=== PATIENT | female | born 1990 | race American Indian/Alaskan Native ===

== ENCOUNTER 2017-08-30 12:18 | Outpatient (CLI) | payer OTHER ==
[2017-08-30 13:12] LABS: Bilirubin,Urine NEG (Negative); Blood,Urine NEG (Negative); Color,Urine Yellow (Yellow); Mucus,Urine FEW /HPF; Nitrite,Urine NEG (Negative); Protein,Urine <15 mg/dL mg/dL (Negative); Urobilinogen,Urine < 2.0 mg/dL (<2.0); WBC,Urine < 1.0 /HPF (0.0-6.0)
[2017-08-30 13:30] VITALS: BP 103/52
== END 2017-08-30 13:45 | disposition home or self-care (01) ==
LOC: TRG 12:18
PROVIDERS: ATTEND Obstetrics & Gynecology
DX: Z34.92 Encounter for supervision of normal pregnancy, unspecified, second trimester (principal); Z3A.26 26 weeks gestation of pregnancy
CPT/HCPCS: 59025; 81001

== ENCOUNTER 2017-10-16 18:30 | Outpatient (CLI) | payer OTHER ==
[2017-10-16] MEDS ORDERED: LACTATED RINGERS 1,000 ML IV ONE (19:37)
[2017-10-16 19:43] VITALS: BP 137/73
== END 2017-10-16 20:15 | disposition home or self-care (01) ==
LOC: TRG 18:30
PROVIDERS: ATTEND Obstetrics & Gynecology
DX: O47.03 False labor before 37 completed weeks of gestation, third trimester (principal); Z3A.33 33 weeks gestation of pregnancy
CPT/HCPCS: 59025

== ENCOUNTER 2017-10-30 01:15 | Inpatient (IN) | payer OTHER ==
[2017-10-30] MEDS ORDERED: LACTATED RINGERS 500 ML IV ONE (01:48)
[2017-10-30] MEDS ORDERED: NORMOSOL-R PH 7.4 1,000 ML IV ONE ×3 (02:03→18:21)
[2017-10-30 03:28] LABS: Hemoglobin 9.9 gm/dl (10.1-14.3); Mean Corpuscular HGB Conc 33 % (30-34); Mean Corpuscular Hemoglobin 28 pg (28-32); Mean Corpuscular Volume 86 fl (79-97); Platelet Count 224 K/mm3 (140-440); Red Blood Count 3.48 M/mm3 (3.65-5.03); Red Cell Distribution Width 14.7 % (13.2-15.2)
[2017-10-30 03:39] LABS: Bilirubin,Urine NEG (Negative); Blood,Urine NEG (Negative); Color,Urine Yellow (Yellow); Protein,Urine <15 mg/dL mg/dL (Negative); Urobilinogen,Urine < 2.0 mg/dL (<2.0)
[2017-10-30 03:44] LABS: Alanine Aminotransferase 28 units/L (7-56)
[2017-10-30 04:35] LABS: Uric Acid 5.5 mg/dL (3.5-7.6)
[2017-10-30] MEDS ORDERED: AMBIEN PO PRN (06:16)
[2017-10-30] MEDS ORDERED: MYLICON PO PRN (06:16)
[2017-10-30] MEDS ORDERED: TYLENOL PO PRN (06:16)
[2017-10-30] MEDS ORDERED: MILK OF MAGNESIA PO PRN (06:16)
[2017-10-30] MEDS ORDERED: APRESOLINE IV PRN (06:16)
[2017-10-30] MEDS ORDERED: ALUM-MAG HYDROX-SIMETH 200-200-20MG/5ML PO PRN (06:16)
[2017-10-30] MEDS ORDERED: ZOFRAN IV PRN (06:16)
[2017-10-30] MEDS ORDERED: MAGNESIUM SULFATE 4GM/100ML 4 GM/100 ML BAG IV ONE (06:16)
[2017-10-30] MEDS ORDERED: COLACE PO PRN (06:16)
[2017-10-30] MEDS ORDERED: LACTATED RINGERS 1,000 ML IV SCH (07:00)
--- NOTE | 2017-10-30 07:57 | History and Physical Report ---
History of Present Illness Date of examination: 10/30/17 Date of admission: 10/30/17 05:22 Chief complaint: Contractions History of present illness: Patient presented complaining of contractions, she was noted to have elevated BP's, she's admitted now to evaluate for preeclampsia EDC Calculations LMP: 12/04/2017 EDC Confirmation: 12/04/2017 Gestational Age: 6 4/7 weeks Past History : 6 Term Births: 2 Premature Births: 1 Living Children: 3 Para: 2 Aborta: 2 Elect. Ab: 2 Spont. Ab: 0 Ectopics: 0 # 1 Delivery date: 2006 Delivery type: EAB # 2 Delivery date: 2011 Delivery type: EAB # 3 Delivery date: 03/31/2013 Weeks Gestation: 37 2/7 Delivery type: Vaginal Hours of labor: 4 Anesthesia type: epidural Delivery location: [facility] Sex: male weight: 5.81 Comments: none # 4 Delivery date: 05/16/2014 Weeks Gestation: 36 Delivery type: Vaginal Anesthesia type: epidural Delivery location: [facility] Sex: male weight: 5.38 Comments: labor, rupture of membranes # 5 Delivery date: 05/08/2016 Weeks Gestation: 38 Delivery type: Vaginal Anesthesia type: none Sex: female weight: 6.13 Comments: none Risk Factors: Smoked Tobacco Use: Never smoker Smokeless Tobacco Use: Never Passive smoke exposure: no Drug use: no HIV high-risk behavior: low risk Alcohol use: no Past Medical History: Reviewed history from 12/08/2012 and no changes required: heart murmur, no antibiotics with procedure Past Surgical History: Reviewed history from 12/08/2012 and no changes required: Negative Past Surgical History Past Medical History Abnormal PAP: negative AUGIE Exposure: negative Infertility: negative Uterine Anomaly: negative Uterine Surgery (not C/S): negative Other Gynecologic Problems: negative Social Hx: Patient is single no e/t/d Smoking History: Patient has never smoked. Infection History Hx of STD: none HIV Risk Eval: low risk Hepatitis B Risk Eval: low risk Personal hx. of genital herpes: no Partner hx. of genital herpes: no Rash, Viral, or Febrile illness since last LMP? no Varicella/Chicken Pox Status: Previous Disease TB Risk: no Genetic History Congenital Heart Defect: Mom: no Dad: no Hanna Disease: Mom: no Dad: no Thalassemia Mom: no Dad: no Neural Tube Defect Mom: no Dad: no Down's Syndrome Mom: no Dad: no Luis-Sachs Mom: no Dad: no Sickle Cell Disease/Trait Mom: no Dad: no Hemophilia Mom: no Dad: no Muscular Dystrophy Mom: no Dad: no Cystic Fibrosis Mom: no Dad: no Emir Chorea Mom: no Dad: no Mental Retardation Mom: no Dad: no Fragile X Mom: no Dad: no Other Genetic/Chromosomal Disorder Mom: no Dad: no Child w/other defect Mom: no Dad: no Enviromental Exposures Xray Exposure: no Medication, drug, or alcohol use since LMP: no Chemical/Other Exposure: no Exposure to Cat Liter: no Hx of Parvovirus (Fifth Disease): no Occupational Exposure to Children: none Current Allergies: No known allergies Past History - Obstetrical History Expected Date of Delivery: 12/04/17 Actual Gestation: 35 Week(s) 0 Day(s) : 6 Medications and Allergies Allergies Allergy/AdvReac Type Severity Reaction Status Date / Time No Known Allergies Allergy Verified 05/13/16 00:40 Home Medications Medication Instructions Recorded Confirmed Last Taken Type Vits96/Iron Fum/Folic 1 tab PO DAILY 05/16/14 10/16/17 10/15/17 History [ Tablet] Active Meds: Active Medications Acetaminophen (Tylenol) 650 mg PO Q4H PRN PRN Reason: Pain MILD(1-3)/Fever >100.5/FIGUEROA Al Hydrox/Mg Hydrox/Simethicone (Alum-Mag Hydrox-Simeth 435-988-12gm/5ml) 30 ml PO Q6H PRN PRN Reason: Indigestion Betamethasone Acet/Betameth SodPhos (Celestone Soluspan) 12 mg IM Q24H STONEY Stop: 10/31/17 08:01 Docusate Sodium (Colace) 100 mg PO Q12H PRN PRN Reason: Constipation Hydralazine HCl (Apresoline) 5 mg IV Q1H PRN PRN Reason: Hypertension Lactated Ringer's (Lactated Ringers) 1,000 mls @ 125 mls/hr IV DIRECT STONEY Magnesium Hydroxide (Milk Of Magnesia) 30 ml PO QHS PRN PRN Reason: Laxative Effect Ondansetron HCl (Zofran) 4 mg IV Q6H PRN PRN Reason: Nausea And Vomiting Simethicone (Mylicon) 80 mg PO Q6H PRN PRN Reason: Gas pain Zolpidem Tartrate (Ambien) 10 mg PO QHS PRN PRN Reason: Sleep Review of Systems All systems: negative Genitourinary: contractions Neurological: headaches - Vital Signs Vital signs: Vital Signs Pulse BP 83 150/94 10/30/17 01:47 10/30/17 01:47 Temp Pulse Resp BP Pulse Ox 90.0 F L 65 13 134/84 79 L 10/30/17 05:40 10/30/17 07:52 10/30/17 05:40 10/30/17 07:48 10/30/17 07:52 - Physical Exam Breasts: Positive: deferred Cardiovascular: Regular rate Lungs: Positive: Clear to auscultation, Normal air movement Abdomen: Positive: normal appearance, soft Extremities: Positive: normal. Negative: tenderness, edema Deep Tendon Reflex Grade: Normal +2 - Obstetrical FHR: category 1 Uterine Contraction Monitor Mode: External Cervical Dilatation: 2.5 (per RN) Results Result Diagrams: 10/30/17 02:22 10/30/17 02:22 Abnormal lab results 10/30/17 10/30/17 10/30/17 Range/Units 02:22 02:22 02:22 RBC 3.48 L (3.65-5.03) M/mm3 Hgb 9.9 L (10.1-14.3) gm/dl Hct 30.0 L (30.3-42.9) % Creatinine 0.3 L (0.7-1.2) mg/dL Magnesium 1.50 L (1.7-2.3) mg/dL AST 44 H (5-40) units/L Lactate Dehydrogenase 416 H (91-180) units/L All other labs normal. Ultrasound: pending (preliminary report reviewed) Assessment and Plan - Patient Problems (1) 35 weeks gestation of Current Visit: Yes Status: Acute (2) Elevated blood pressure affecting in third trimester, antepartum Current Visit: Yes Status: Acute Plan to address problem: Steroids 24hour urine MgSO4 prophylaxis
--- NOTE | 2017-10-30 08:12 | Ultrasound Report ---
FINAL REPORT EXAM: US OB LIMITED HISTORY: elevated BP's COMPARISONS: None. FINDINGS: Limited 3rd trimester transabdominal grayscale, color Doppler and M-mode ultrasound Single living intrauterine in cephalic presentation with recorded cardiac activity of 154 beats per minute. Amniotic fluid volume is subjectively normal, and amniotic fluid index measures approximately 10 cm. IMPRESSION: Single living intrauterine in cephalic presentation with normal amniotic fluid volume.
[2017-10-30] MEDS: CELESTONE SOLUSPAN IM SCH (08:33)
[2017-10-30] MEDS ORDERED: MAGNESIUM SULFATE 40GM/1000ML 40 GM/1,000 ML BAG IV ONE (09:55)
[2017-10-30] MEDS ORDERED: CELESTONE SOLUSPAN IM SCH (10:00)
[2017-10-30] MEDS ORDERED: MAGNESIUM SULFATE 40GM/1000ML 40 GM/1,000 ML BAG IV SCH (20:00)
[2017-10-31] MEDS ORDERED: NORMOSOL-R PH 7.4 1,000 ML IV ONE ×2 (07:14→08:08)
[2017-10-31 07:27] LABS: Alanine Aminotransferase 29 units/L (7-56)
[2017-10-31 07:40] LABS: Uric Acid 4.7 mg/dL (3.5-7.6)
--- NOTE | 2017-10-31 10:36 | Progress Note ---
Assessment and Plan 24hr urine due to be completed @ 1030 Repeat [facility] labs today AST wnl 30. BPs 130/ 70 No c/o FIGUEROA, blurred vision, chest pain. BMZ x 2 doses completed SVE 3,70,-2. Will review labs when back and consult with . Subjective - Subjective Date of service: 10/31/17 (pt OOB "I needed to strech my legs.") Principal diagnosis: IUP 35w1d hx PTL; elevated BP in third trimester Patient reports: movement normal Objective - Vital Signs Vital Signs: Vital Signs - 12hr 10/30/17 10/30/17 10/30/17 22:32 22:37 22:42 Temperature Pulse Rate 95 H 104 H 96 H Respiratory Rate Blood Pressure Blood Pressure [Left] O2 Sat by Pulse 95 97 97 Oximetry 10/30/17 10/30/17 10/30/17 22:44 22:47 22:52 Temperature Pulse Rate 95 H 95 H 96 H Respiratory Rate Blood Pressure 123/68 Blood Pressure [Left] O2 Sat by Pulse 94 97 97 Oximetry 10/30/17 10/30/17 10/30/17 22:57 23:02 23:07 Temperature Pulse Rate 94 H 96 H 90 Respiratory Rate Blood Pressure Blood Pressure [Left] O2 Sat by Pulse 97 95 96 Oximetry 10/30/17 10/30/17 10/30/17 23:12 23:17 23:18 Temperature Pulse Rate 86 93 H 92 H Respiratory Rate Blood Pressure Blood Pressure [Left] O2 Sat by Pulse 97 94 94 Oximetry 10/30/17 10/30/17 10/30/17 23:22 23:23 23:27 Temperature Pulse Rate 90 88 91 H Respiratory Rate Blood Pressure Blood Pressure [Left] O2 Sat by Pulse 94 94 94 Oximetry 10/30/17 10/30/17 10/30/17 23:29 23:32 23:37 Temperature 97.9 F Pulse Rate 110 H 94 H Respiratory 24 Rate Blood Pressure Blood Pressure [Left] O2 Sat by Pulse 96 98 Oximetry 10/30/17 10/30/17 10/30/17 23:42 23:43 23:47 Temperature Pulse Rate 96 H 91 H 92 H Respiratory Rate Blood Pressure 130/77 Blood Pressure [Left] O2 Sat by Pulse 97 97 Oximetry 10/30/17 10/30/17 10/30/17 23:52 23:57 23:59 Temperature Pulse Rate 89 93 H 88 Respiratory Rate Blood Pressure Blood Pressure [Left] O2 Sat by Pulse 96 96 94 Oximetry 10/31/17 10/31/17 10/31/17 00:02 00:07 00:12 Temperature Pulse Rate 94 H 94 H 95 H Respiratory Rate Blood Pressure Blood Pressure [Left] O2 Sat by Pulse 94 92 93 Oximetry 10/31/17 10/31/17 10/31/17 00:17 00:22 00:27 Temperature Pulse Rate 95 H 97 H 96 H Respiratory Rate Blood Pressure Blood Pressure [Left] O2 Sat by Pulse 93 93 98 Oximetry 10/31/17 10/31/17 10/31/17 00:29 00:32 00:35 Temperature Pulse Rate 92 H 94 H 87 Respiratory Rate Blood Pressure Blood Pressure [Left] O2 Sat by Pulse 94 95 94 Oximetry 10/31/17 10/31/17 10/31/17 00:37 00:42 00:43 Temperature Pulse Rate 99 H 88 94 H Respiratory Rate Blood Pressure 127/71 Blood Pressure [Left] O2 Sat by Pulse 96 95 94 Oximetry 10/31/17 10/31/17 10/31/17 00:47 00:58 01:03 Temperature Pulse Rate 105 H 104 H 99 H Respiratory Rate Blood Pressure Blood Pressure [Left] O2 Sat by Pulse 95 99 98 Oximetry 10/31/17 10/31/17 10/31/17 01:08 01:13 01:18 Temperature Pulse Rate 91 H 88 87 Respiratory Rate Blood Pressure Blood Pressure [Left] O2 Sat by Pulse 98 98 97 Oximetry 10/31/17 10/31/17 10/31/17 01:23 01:28 01:33 Temperature Pulse Rate 89 94 H 96 H Respiratory Rate Blood Pressure Blood Pressure [Left] O2 Sat by Pulse 97 97 98 Oximetry 10/31/17 10/31/17 10/31/17 01:38 01:43 01:44 Temperature Pulse Rate 86 96 H 100 H Respiratory Rate Blood Pressure 133/80 Blood Pressure [Left] O2 Sat by Pulse 98 99 Oximetry 10/31/17 10/31/17 10/31/17 01:48 01:53 01:58 Temperature Pulse Rate 96 H 90 90 Respiratory Rate Blood Pressure Blood Pressure [Left] O2 Sat by Pulse 98 98 98 Oximetry 10/31/17 10/31/1718 02:03 02:08 02:13 Temperature Pulse Rate 97 H 89 94 H Respiratory Rate Blood Pressure Blood Pressure [Left] O2 Sat by Pulse 97 98 97 Oximetry 10/31/17 10/31/17 10/31/17 02:18 02:23 02:28 Temperature Pulse Rate 92 H 97 H 92 H Respiratory Rate Blood Pressure Blood Pressure [Left] O2 Sat by Pulse 99 100 98 Oximetry 10/31/17 10/31/17 10/31/17 02:33 02:38 02:43 Temperature Pulse Rate 94 H 91 H 101 H Respiratory Rate Blood Pressure Blood Pressure [Left] O2 Sat by Pulse 98 96 97 Oximetry 10/31/17 10/31/17 10/31/17 02:44 02:48 02:53 Temperature Pulse Rate 104 H 103 H 103 H Respiratory Rate Blood Pressure 135/85 Blood Pressure [Left] O2 Sat by Pulse 97 98 Oximetry 10/31/17 10/31/17 10/31/17 02:58 03:00 03:03 Temperature 97.8 F Pulse Rate 99 H 106 H Respiratory 20 Rate Blood Pressure Blood Pressure [Left] O2 Sat by Pulse 97 98 Oximetry 10/31/17 10/31/17 10/31/17 03:08 03:13 03:18 Temperature Pulse Rate 97 H 93 H 89 Respiratory Rate Blood Pressure Blood Pressure [Left] O2 Sat by Pulse 97 98 97 Oximetry 10/31/17 10/31/17 10/31/17 03:23 03:27 03:28 Temperature Pulse Rate 90 66 108 H Respiratory Rate Blood Pressure Blood Pressure [Left] O2 Sat by Pulse 98 84 98 Oximetry 10/31/17 10/31/17 10/31/17 03:32 03:33 03:38 Temperature Pulse Rate 113 H 103 H Respiratory Rate Blood Pressure Blood Pressure [Left] O2 Sat by Pulse 86 98 97 Oximetry 10/31/17 10/31/17 10/31/17 03:43 03:48 03:53 Temperature Pulse Rate 93 H 92 H 88 Respiratory Rate Blood Pressure 132/78 Blood Pressure [Left] O2 Sat by Pulse 98 98 98 Oximetry 10/31/17 10/31/17 10/31/17 03:58 04:03 04:08 Temperature Pulse Rate 92 H 97 H 92 H Respiratory Rate Blood Pressure Blood Pressure [Left] O2 Sat by Pulse 96 98 96 Oximetry 10/31/17 10/31/17 10/31/17 04:13 04:18 04:21 Temperature Pulse Rate 100 H 94 H 98 H Respiratory Rate Blood Pressure Blood Pressure [Left] O2 Sat by Pulse 96 96 94 Oximetry 10/31/17 10/31/17 10/31/17 04:23 04:28 04:33 Temperature Pulse Rate 97 H 103 H 104 H Respiratory Rate Blood Pressure Blood Pressure [Left] O2 Sat by Pulse 95 95 95 Oximetry 10/31/17 10/31/17 10/31/17 04:35 04:38 04:42 Temperature Pulse Rate 101 H 100 H 104 H Respiratory Rate Blood Pressure Blood Pressure [Left] O2 Sat by Pulse 94 95 94 Oximetry 10/31/17 10/31/17 10/31/17 04:43 04:48 04:52 Temperature Pulse Rate 113 H 94 H 99 H Respiratory Rate Blood Pressure 127/71 Blood Pressure [Left] O2 Sat by Pulse 95 96 94 Oximetry 10/31/17 10/31/17 10/31/17 04:53 04:58 05:03 Temperature Pulse Rate 99 H 107 H 102 H Respiratory Rate Blood Pressure Blood Pressure [Left] O2 Sat by Pulse 95 95 95 Oximetry 10/31/17 10/31/17 10/31/17 05:05 05:08 05:13 Temperature Pulse Rate 107 H 105 H 103 H Respiratory Rate Blood Pressure Blood Pressure [Left] O2 Sat by Pulse 94 95 95 Oximetry 10/31/17 10/31/17 10/31/17 05:14 05:18 05:20 Temperature Pulse Rate 112 H 111 H 34 L Respiratory Rate Blood Pressure Blood Pressure [Left] O2 Sat by Pulse 94 98 79 L Oximetry 10/31/17 10/31/17 10/31/17 05:23 05:28 05:33 Temperature Pulse Rate 99 H 98 H 96 H Respiratory Rate Blood Pressure Blood Pressure [Left] O2 Sat by Pulse 97 95 95 Oximetry 10/31/17 10/31/17 10/31/17 05:34 05:38 05:40 Temperature Pulse Rate 92 H 98 H 90 Respiratory Rate Blood Pressure Blood Pressure [Left] O2 Sat by Pulse 94 95 93 Oximetry 10/31/17 10/31/17 10/31/17 05:43 05:48 05:53 Temperature Pulse Rate 100 H 95 H 97 H Respiratory Rate Blood Pressure 120/68 Blood Pressure [Left] O2 Sat by Pulse 96 96 96 Oximetry 10/31/17 10/31/17 10/31/17 05:58 06:03 06:08 Temperature Pulse Rate 95 H 91 H 98 H Respiratory Rate Blood Pressure Blood Pressure [Left] O2 Sat by Pulse 96 94 96 Oximetry 10/31/17 10/31/17 10/31/17 06:09 06:13 06:18 Temperature Pulse Rate 97 H 101 H 95 H Respiratory Rate Blood Pressure Blood Pressure [Left] O2 Sat by Pulse 93 95 96 Oximetry 10/31/17 10/31/17 10/31/17 06:23 06:28 06:30 Temperature Pulse Rate 99 H 98 H 108 H Respiratory Rate Blood Pressure Blood Pressure [Left] O2 Sat by Pulse 96 97 94 Oximetry 10/31/17 10/31/17 10/31/17 06:33 06:36 06:38 Temperature Pulse Rate 93 H 94 H 92 H Respiratory Rate Blood Pressure Blood Pressure [Left] O2 Sat by Pulse 96 94 95 Oximetry 10/31/17 10/31/17 10/31/17 06:41 06:43 06:46 Temperature Pulse Rate 93 H 89 91 H Respiratory Rate Blood Pressure 111/56 Blood Pressure [Left] O2 Sat by Pulse 94 95 94 Oximetry 10/31/17 10/31/17 10/31/17 06:48 06:53 06:59 Temperature Pulse Rate 92 H 100 H 84 Respiratory Rate Blood Pressure Blood Pressure [Left] O2 Sat by Pulse 98 96 83 L Oximetry 10/31/17 10/31/17 10/31/17 07:00 07:05 07:13 Temperature Pulse Rate 71 Respiratory Rate Blood Pressure Blood Pressure [Left] O2 Sat by Pulse 85 84 82 L Oximetry 10/31/17 10/31/17 10/31/17 07:18 07:23 07:28 Temperature Pulse Rate 90 Respiratory Rate Blood Pressure Blood Pressure [Left] O2 Sat by Pulse 79 L 79 L 98 Oximetry 10/31/17 10/31/17 10/31/17 07:33 07:38 07:43 Temperature Pulse Rate 90 89 93 H Respiratory Rate Blood Pressure Blood Pressure [Left] O2 Sat by Pulse 97 97 98 Oximetry 10/31/17 10/31/17 10/31/17 07:45 07:46 07:53 Temperature Pulse Rate 93 H 62 Respiratory Rate Blood Pressure 135/77 Blood Pressure [Left] O2 Sat by Pulse 92 0 L Oximetry 10/31/17 10/31/17 10/31/17 08:00 08:44 08:45 Temperature 98.1 F Pulse Rate 106 H 93 H Respiratory 18 Rate Blood Pressure 128/75 Blood Pressure 128/75 [Left] O2 Sat by Pulse 82 L 92 98 Oximetry 10/31/17 10/31/17 10/31/17 08:49 08:54 09:07 Temperature Pulse Rate 88 117 H Respiratory Rate Blood Pressure Blood Pressure [Left] O2 Sat by Pulse 99 98 87 Oximetry 10/31/17 10/31/17 10/31/17 09:16 09:21 09:24 Temperature Pulse Rate 67 92 H Respiratory Rate Blood Pressure Blood Pressure [Left] O2 Sat by Pulse 76 L 78 L 98 Oximetry 10/31/17 10/31/17 10/31/17 09:29 09:34 09:39 Temperature Pulse Rate 89 88 89 Respiratory Rate Blood Pressure Blood Pressure [Left] O2 Sat by Pulse 96 97 98 Oximetry 10/31/17 10/31/17 10/31/17 09:43 09:44 09:49 Temperature Pulse Rate 94 H 90 87 Respiratory Rate Blood Pressure 130/81 Blood Pressure [Left] O2 Sat by Pulse 98 97 Oximetry 10/31/17 10/31/17 10/31/17 09:54 09:59 10:04 Temperature Pulse Rate 87 89 93 H Respiratory Rate Blood Pressure Blood Pressure [Left] O2 Sat by Pulse 98 96 96 Oximetry 10/31/17 10/31/17 10/31/17 10:09 10:14 10:19 Temperature Pulse Rate 95 H 97 H 90 Respiratory Rate Blood Pressure Blood Pressure [Left] O2 Sat by Pulse 95 95 97 Oximetry 10/31/17 10/31/17 10:24 10:29 Temperature Pulse Rate 93 H 96 H Respiratory Rate Blood Pressure Blood Pressure [Left] O2 Sat by Pulse 96 96 Oximetry - Exam Breasts: deferred Cardiovascular: Regular rate Lungs: Clear to auscultation, Normal air movement Abdomen: Present: normal appearance, soft Vulva: both: normal Uterus: Present: normal FHR: category 1 Uterine Contraction Monitor Mode: External Cervical Dilatation: 3 Cervical Effacement Percentage: 70 station: -2 Uterine Contraction Pattern: Irregular Uterine Tone Measurement Phase: Resting Uterine Contraction Intensity: Mild Extremities: normal Deep Tendon Reflex Grade: Normal +2 - Labs Labs: Abnormal Labs 10/30/17 10/30/17 10/30/17 02:22 02:22 02:22 RBC 3.48 L Hgb 9.9 L Hct 30.0 L Creatinine 0.3 L Magnesium 1.50 L AST 44 H Lactate Dehydrogenase 416 H 10/30/17 10/31/17 10/31/17 17:49 04:10 06:52 RBC Hgb Hct Creatinine 0.4 L Magnesium 4.30 H 4.70 H AST Lactate Dehydrogenase 215 H Laboratory Results - last 24 hr 10/30/17 10/30/17 10/31/17 02:22 17:49 04:10 Creatinine Estimated GFR Uric Acid Magnesium 4.30 H 4.70 H AST ALT Lactate Dehydrogenase Blood Type O POSITIVE Antibody Screen Negative 10/31/17 06:52 Creatinine 0.4 L Estimated GFR > 60 Uric Acid 4.7 Magnesium AST 30 ALT 29 Lactate Dehydrogenase 215 H Blood Type Antibody Screen
[2017-10-31] MEDS: CELESTONE SOLUSPAN IM SCH (12:31)
[2017-10-31] MEDS ORDERED: CELESTONE SOLUSPAN IM SCH (13:00)
[2017-10-31 15:56] VITALS: BP 135/85
[2017-10-31] MEDS ORDERED: VISTARIL PO ONE (16:28)
--- NOTE | 2017-10-31 16:37 | Discharge Summary ---
Providers - Providers Date of Admission: 10/30/17 06:16 Date of discharge: 10/31/17 (consulted with for d/c ) Attending physician: CLEMENTE MATHIAS Primary care physician: CLEMENTE MATHIAS Hospitalization Reason for admission: contractions; PreE 3rd trimester discovered Condition: Good Pertinent studies: US; 24hr urine; PIH labs Hospital course: observation of poss labor and evaluation for PreE Discussed all lab findings and pt condition with . Decision to discharge with strict instructions to keep appt tomorrow as sera. Call with any FIGUEROA, blurred vision, chest pain. Pt states she will not be home alone, her will be with her. She is anxious to go home. Disposition: DC-01 TO HOME OR SELFCARE - Discharge Diagnoses (1) Elevated blood pressure affecting in third trimester, antepartum Status: Acute Core Measure Documentation - Palliative Care Palliative Care/ Comfort Measures: Not Applicable - Core Measures Any of the following diagnoses?: none - VTE Discharge Requirements Deep Vein Thrombosis/Pulmonary Embolism Present on Admission: No Has pt received <5 days of overlap therapy or INR<2.0: No Anticoagulant overlap therapy prescribed at discharge: No Contraindication No Overlap Therapy order at DC: Not Indicated - Acute ND Discharge Requirements Aspirin at discharge: No Reason for no aspirin on DC: Medical contraindication RAJWINDER/ARB for LVSD if EF <40%: Not Applicable Reason for no RAJWINDER/ARB: Medical contraindication Beta nate at discharge: No Reason for no beta nate on DC: Medical contraindication Statin for LDL = or >100 mg/dl on DC: Not Applicable Reason for no statin on DC: Medical contraindication - Heart Failure Discharge Requirements RAJWINDER/ARB for LVSD if EF <40%: Not Applicable Reason for no RAJWINDER/ARB: Medical contraindication Beta nate at discharge: No Reason for no beta naet on DC: Medical contraindication - Stroke Discharge Requirements Statin for LDL = or >70 mg/dl on DC: Not Applicable Reason for no statin on DC: Not Indicated Anticoag for atrial fib/atrial flutter: Not Applicable Reason for no anticoag for AF/F on DC: Not Indicated Antithrombotic for ischemic stroke: No Reason for no antithrombotic on DC: Not Indicated Exam - Constitutional Vitals: Temp Pulse Resp BP Pulse Ox 98.1 F 97 H 18 135/85 98 10/31/17 08:45 10/31/17 16:00 10/31/17 08:45 10/31/17 16:00 10/31/17 12:36 General appearance: Present: no acute distress, well-nourished - EENT Eyes: Present: PERRL ENT: hearing intact, clear oral mucosa - Neck Neck: Present: supple, normal ROM - Respiratory Respiratory effort: normal Respiratory: bilateral: CTA - Cardiovascular Heart Sounds: Present: S1 & S2. Absent: rub, click - Extremities Extremities: pulses symmetrical, No edema Peripheral Pulses: within normal limits - Abdominal General gastrointestinal: Present: deferred Female genitourinary: Present: normal - Rectal Rectal Exam: deferred - Integumentary Integumentary: Present: clear, warm, dry - Musculoskeletal Musculoskeletal: strength equal bilaterally - Psychiatric Psychiatric: appropriate mood/affect - Neurologic Neurologic: moves all extremities Plan Activity: other (pelvic rest; home rest) Weight Bearing Status: Non-Weight Bearing Diet: low salt Follow up with: CLEMENTE MATHIAS MD [Primary Care Provider] - 11/01/17 (Call with contractions , blurred vision, chest pain, headaches. Keep appointment tomorrow as scheduled. ) Prescriptions: Ibuprofen [Motrin 800 MG tab] 800 mg PO TID PRN #30 tablet PRN Reason: Pain oxyCODONE /ACETAMINOPHEN [Percocet 5/325 mg] 1 - 2 tab PO Q4HR PRN #30 tablet PRN Reason: Pain
== END 2017-10-31 17:28 | disposition home or self-care (01) | DRG 781 ==
LOC: TRG 01:15 → LD 05:22 → OBSVTOIN 06:16
PROVIDERS: ADMIT Obstetrics & Gynecology; ATTEND Obstetrics & Gynecology
DX: O14.93 Unspecified pre-eclampsia, third trimester (principal); O60.03 Preterm labor without delivery, third trimester; Z3A.35 35 weeks gestation of pregnancy
CPT/HCPCS: 36415; 76815; 81001; 82565; 83615; 83735; 84156; 84450; 84460; 84550; 85027; 86850; 86900; 86901; J0702; J3475; Q0177

== ENCOUNTER 2017-11-03 07:34 | Inpatient (IN) | payer OTHER ==
[2017-11-03 08:46] LABS: Bacteria,Urine 1+ /HPF (Negative); Bilirubin,Urine NEG (Negative); Blood,Urine NEG (Negative); Color,Urine Yellow (Yellow); Mucus,Urine FEW /HPF; Protein,Urine <15 mg/dL mg/dL (Negative); Urobilinogen,Urine < 2.0 mg/dL (<2.0)
[2017-11-03] MEDS ORDERED: BRETHINE SUB-Q PRN (08:47)
[2017-11-03] MEDS ORDERED: POLYCILLIN/NS 2 GM/100 ML 2 GM/100 ML BAG IV ONE (08:47)
[2017-11-03] MEDS ORDERED: ePHEDrine SULFATE IV PRN ×2 (08:47→13:57)
[2017-11-03] MEDS ORDERED: SUBLIMAZE IV PRN (08:47)
[2017-11-03] MEDS ORDERED: ZOFRAN IV PRN (08:47)
[2017-11-03] MEDS ORDERED: BRETHINE IVP PRN (08:47)
[2017-11-03] MEDS ORDERED: XYLOCAINE 2% INFILTRATI ONE (08:47)
[2017-11-03] MEDS ORDERED: MINERAL OIL PO PRN (08:47)
[2017-11-03 08:56] LABS: RBC,Urine < 1.0 /HPF (0.0-6.0)
--- NOTE | 2017-11-03 08:57 | History and Physical Report ---
History of Present Illness Date of examination: 11/03/17 History of present illness: EDC Confirmation: 12/04/2017 Gestational Age: 6 4/7 weeks Past History : 6 Term Births: 2 Premature Births: 1 Living Children: 3 Para: 2 Aborta: 2 Elect. Ab: 2 Spont. Ab: 0 Ectopics: 0 # 1 Delivery date: 2006 Delivery type: EAB # 2 Delivery date: 2011 Delivery type: EAB # 3 Delivery date: 03/31/2013 Weeks Gestation: 37 2/7 Delivery type: Vaginal Hours of labor: 4 Anesthesia type: epidural Delivery location: [facility] Infant Sex: male weight: 5.81 Comments: none # 4 Delivery date: 05/16/2014 Weeks Gestation: 36 Delivery type: Vaginal Anesthesia type: epidural Delivery location: [facility] Infant Sex: male weight: 5.38 Comments: labor, rupture of membranes # 5 Delivery date: 05/08/2016 Weeks Gestation: 38 Delivery type: Vaginal Anesthesia type: none Infant Sex: female weight: 6.13 Comments: none Risk Factors: Smoked Tobacco Use: Never smoker Smokeless Tobacco Use: Never Passive smoke exposure: no Drug use: no HIV high-risk behavior: low risk Alcohol use: no Past Medical History: Reviewed history from 12/08/2012 and no changes required: heart murmur, no antibiotics with procedure Past Surgical History: Reviewed history from 12/08/2012 and no changes required: Negative Past Surgical History Past Medical History Abnormal PAP: negative AUGIE Exposure: negative Infertility: negative Uterine Anomaly: negative Uterine Surgery (not C/S): negative Other Gynecologic Problems: negative Social Hx: Patient is single no e/t/d Smoking History: Patient has never smoked. Infection History Hx of STD: none HIV Risk Eval: low risk Hepatitis B Risk Eval: low risk Personal hx. of genital herpes: no Partner hx. of genital herpes: no Rash, Viral, or Febrile illness since last LMP? no Varicella/Chicken Pox Status: Previous Disease TB Risk: no Genetic History Congenital Heart Defect: Mom: no Dad: no Hanna Disease: Mom: no Dad: no Thalassemia Mom: no Dad: no Neural Tube Defect Mom: no Dad: no Down's Syndrome Mom: no Dad: no Luis-Sachs Mom: no Dad: no Sickle Cell Disease/Trait Mom: no Dad: no Hemophilia Mom: no Dad: no Muscular Dystrophy Mom: no Dad: no Cystic Fibrosis Mom: no Dad: no [place] Chorea Mom: no Dad: no Mental Retardation Mom: no Dad: no Fragile X Mom: no Dad: no Other Genetic/Chromosomal Disorder Mom: no Dad: no Child w/other defect Mom: no Dad: no Enviromental Exposures Xray Exposure: no Medication, drug, or alcohol use since LMP: no Chemical/Other Exposure: no Exposure to Cat Liter: no Hx of Parvovirus (Fifth Disease): no Occupational Exposure to Children: none Current Allergies: No known allergies Laboratory Results Date/Time Collected: 04/14/2017 Routine Urinalysis Leukocytes: negative Nitrite: negative Urobilinogen: negative Protein: Negative Blood: negative Ketone: negative Bilirubin: negative Glucose: Negative Urine HCG: positive Review of Systems General Denies fever, chills, sweats, anorexia, fatigue, weakness, malaise, weight loss and sleep disorder. Denies nausea, vomiting, headache, swelling of legs, abdominal pain, vaginal discharge, vaginal bleeding and contractions. Denies vaginal discharge, incontinence, dysuria, hematuria, urinary frequency, amenorrhea, menorrhagia, abnormal vaginal bleeding, pelvic pain, genital sores, decreased libido, painful periods, painful sex, urinary urgency, hot flashes, vaginal dryness, vaginal itching and vaginal odor. CV Denies chest pains, palpitations, syncope, dyspnea on exertion, orthopnea, PND and peripheral edema. Resp Denies cough, dyspnea at rest, excessive sputum, hemoptysis, wheezing and pleurisy. GI Denies nausea, vomiting, diarrhea, constipation, change in bowel habits, abdominal pain, melena, hematochezia, jaundice, gas/bloating, indigestion/ heartburn, dysphagia and odynophagia. Endo Denies cold intolerance, heat intolerance, polydipsia, polyphagia, polyuria and unusual weight change. Breast Denies left breast lump, right breast lump, nipple discharge, bloody discharge from nipple, breast pain, abnormal mammogram and breast enlargement. MS Denies back pain, joint pain, joint swelling, muscle cramps, muscle weakness, stiffness, arthritis, sciatica, restless legs, leg pain at night and leg pain with exertion. Derm Denies rash, itching, dryness and suspicious lesions. Neuro Denies paralysis, paresthesias, headache, seizures, tremors, vertigo, transient blindness, frequent falls, frequent headaches and difficulty walking. Psych Denies depression, anxiety, irritability and mood swings. Eyes Denies blurring, diplopia, irritation, discharge, vision loss, eye pain and photophobia. ENT Denies earache, ear discharge, tinnitus, decreased hearing, nasal congestion, nosebleeds, sore throat and hoarseness. Allergy Denies urticaria, allergic rash, hay fever and recurrent infections. Heme Denies abnormal bruising, bleeding and enlarged lymph nodes. PHYSICAL EXAM HEENT: PERRLA, normal conjunctiva, external nose and nasal mucosa normal, oropharynx clear Neck/Thyroid: supple, thyroid normal Skin no significant abnormal lesions or rashes Chest: respiratory effort normal, clear to auscultation Breasts: normal without skin changes or masses CV: regular, normal S1-S2, no murmur, no rub, no gallop Abdomen: normal bowel sounds, soft, nontender, no HSM Musculoskeletal: grossly normal ROM in joints, no joint tenderness or muscle weakness Neuro: grossly normal DTRs, sensation, strength, cranial nerves Extremities: no clubbing, cyanosis, or edema CAKE ICER Exams Vulva/Vagina: No lesions, normal BUS, normal rugae Cervix: No lesions; no cervical motion tenderness Uterus: normal size and position, midline, mobile Adnexae: no masses or tenderness Rectovaginal: no masses or tenderness Past History - Obstetrical History Expected Date of Delivery: 12/04/17 Actual Gestation: 35 Week(s) 4 Day(s) : 6 Para: 3 Hx # Term Pregnancies: 2 Number of Pregnancies: 1 Induced : 2 Number of Living Children: 3 Medications and Allergies Allergies Allergy/AdvReac Type Severity Reaction Status Date / Time No Known Allergies Allergy Verified 05/13/16 00:40 Home Medications Medication Instructions Recorded Confirmed Last Taken Type Vits96/Iron Fum/Folic 1 tab PO DAILY 05/16/14 11/03/17 11/02/17 History [ Tablet] - Vital Signs Vital signs: Vital Signs Pulse BP 92 H 150/92 11/03/17 08:00 11/03/17 08:00 Temp Pulse Resp BP Pulse Ox 98.3 F 89 18 152/87 11/03/17 08:07 11/03/17 08:50 11/03/17 08:07 11/03/17 08:50 - Physical Exam Breasts: Positive: deferred Cardiovascular: Regular rate, Normal S1, Normal S2 Lungs: Positive: Normal air movement Abdomen: Positive: normal appearance, soft, normal bowel sounds. Negative: distention, tenderness Genitourinary (Female): Positive: normal external genitalia, normal perenium Vulva: both: normal Vagina: Positive: normal moisture. Negative: discharge Cervix: Negative: lesion, discharge Uterus: Positive: normal size, normal contour Adnexa: both: normal Anus/Rectum: Positive: normal perianal skin, heme negative. Negative: rectal mass, hemorrhoids Extremities: Positive: edema Deep Tendon Reflex Grade: Normal +2 - Obstetrical FHR: category 1 Uterine Contraction Monitor Mode: External Cervical Dilatation: 4 Cervical Effacement Percentage: 60 station: -2 Uterine Contraction Pattern: Irregular Uterine Tone Measurement Phase: Resting Uterine Contraction Intensity: Mild Results All other labs normal. GBS unknown @ time of admission. Will treat per protocol. HBsAg Screen Negative Negative *1 Rubella Antibodies, IgG 9.35 index Immune >0.99 *2 Non-immune <0.90 Equivocal 0.90 - 0.99 Immune >0.99 ABO Grouping O *3 Rh Factor Positive *4 Please note: Prior records for this patient's ABO / Rh type are not available for additional verification. Antibody Screen Negative Negative *5 RPR Non Reactive Non Reactive *6 WBC 5.5 x10E3/uL 3.4-10.8 *7 RBC 3.83 x10E6/uL 3.77-5.28 *8 Hemoglobin 11.6 g/dL 11.1-15.9 *9 Hematocrit 34.0 % 34.0-46.6 *10 MCV 89 fL 79-97 *11 MCH 30.3 pg 26.6-33.0 *12 MCHC 34.1 g/dL 31.5-35.7 *13 RDW 13.6 % 12.3-15.4 *14 Platelets 237 x10E3/uL 150-379 *15 Neutrophils 64 % *16 Lymphs 28 % *17 Monocytes 7 % *18 Eos 1 % *19 Basos 0 % *20 ! Immature Cells <No Reported Value> *21 Neutrophils (Absolute) 3.5 x10E3/uL 1.4-7.0 *22 Lymphs (Absolute) 1.5 x10E3/uL 0.7-3.1 *23 Monocytes(Absolute) 0.4 x10E3/uL 0.1-0.9 *24 Eos (Absolute) 0.0 x10E3/uL 0.0-0.4 *25 Baso (Absolute) 0.0 x10E3/uL 0.0-0.2 *26 ! Immature Granulocytes 0 % *27 ! Immature Grans (Abs) 0.0 x10E3/uL 0.0-0.1 *28 ! NRBC <No Reported Value> *29 Hematology Comments: <No Reported Value> *30 Tests: (2) HB Solu + Rflx Fra ([id number]) Hemoglobin (Hgb) Solubility Negative Negative *31 Tests: (3) Panel [id number] ([id number]) HIV Screen 4th Generation wRfx Non Reactive Non Reactive *32 Tests: (4) HCV Ab w/Rflx to Verification ([id number]) ! HCV Ab <0.1 s/co ratio 0.0-0.9 *33 Tests: (5) Comment: ([id number]) ! Comment: SPRCS *34 Non reactive HCV antibody screen is consistent with no HCV infection, unless recent infection is suspected or other evidence exists to indicate HCV infection. Tests: (6) Urine Culture, Routine ([id number]) Urine Culture, Routine Final report *35 Tests: (7) Result ([id number]) ! Result 1 No growth *36 Assessment and Plan 27yo @ 35w4d with ctx and PreE. Pt had been hospitalized 3 days ago and received BMZ X 2 Her 24hr urine total protein @ that admission was 4600. Consulted with decision made to induce due to PreE and pt c/ o FIGUEROA this admission. GBS unknown @ time of admission Will treat per protocol. PIH labs drawn. Orders in EMR.
[2017-11-03] MEDS ORDERED: LACTATED RINGERS 1,000 ML IV SCH (09:00)
[2017-11-03] MEDS ORDERED: PITOCin/NS 20 UNIT/1000ML DRIP 20 UNITS/1,000 ML BAG IV SCH (09:00)
[2017-11-03] MEDS ORDERED: PITOCin/NS 30 UNIT/500ML 30 UNITS/500 ML BAG IV SCH (09:00)
[2017-11-03 10:16] LABS: Hematocrit 32.7 % (30.3-42.9); Hemoglobin 10.4 gm/dl (10.1-14.3); Mean Corpuscular HGB Conc 32 % (30-34); Mean Corpuscular Hemoglobin 28 pg (28-32); Mean Corpuscular Volume 87 fl (79-97); Platelet Count 273 K/mm3 (140-440); Red Blood Count 3.74 M/mm3 (3.65-5.03); Red Cell Distribution Width 14.2 % (13.2-15.2)
[2017-11-03 10:41] LABS: Alanine Aminotransferase 59 units/L (7-56); Uric Acid 5.5 mg/dL (3.5-7.6)
[2017-11-03] MEDS ORDERED: AMPICILLIN/NS 1 GM/50 ML 1 GM/50 ML BAG IV SCH (12:49)
[2017-11-03] MEDS ORDERED: NARCAN 2 MG/2 ML IV PRN (13:57)
--- NOTE | 2017-11-03 13:57 | Anesthesia Consultation ---
Anesthesia Consult and Med Hx Date of service: 11/03/17 - Airway Anesthetic Teeth Evaluation: Good ROM Head & Neck: Adequate Mental/Hyoid Distance: Adequate Mallampati Class: Class II Intubation Access Assessment: Probably Good - Pre-Operative Health Status ASA Pre-Surgery Classification: ASA2 Proposed Anesthetic Plan: Epidural, Spinal - Pulmonary Hx Asthma: No COPD: No Hx Pneumonia: No - Cardiovascular System Hx Hypertension: No - Central Nervous System Hx Seizures: No Hx Psychiatric Problems: No - Endocrine Hx Renal Disease: No Hx End Stage Renal Disease: No Hx Hypothyroidism: No Hx Hyperthyroidism: No - Hematic Hx Anemia: No Hx Sickle Cell Disease: No - Other Systems Hx Alcohol Use: No
[2017-11-03] MEDS ORDERED: fentaNYL-BUPIV 2 MCG/ML-0.125% 200 MCG/100 ML BAG EPIDURAL SCH (14:00)
[2017-11-03] MEDS ORDERED: PHENERGAN PO PRN (14:07)
[2017-11-03] MEDS ORDERED: BENADRYL PO PRN (14:07)
[2017-11-03] MEDS ORDERED: MILK OF MAGNESIA PO PRN (14:07)
[2017-11-03] MEDS ORDERED: TYLENOL PO PRN (14:07)
[2017-11-03] MEDS ORDERED: DULCOLAX PR PRN (14:07)
[2017-11-03] MEDS ORDERED: LANSINOH TP PRN (14:07)
[2017-11-03] MEDS ORDERED: TUCKS PAD TP PRN (14:07)
[2017-11-03] MEDS ORDERED: MAGNESIUM SULFATE 4GM/100ML 4 GM/100 ML BAG IV ONE (14:25)
[2017-11-03] MEDS ORDERED: NORCO 5/325 PO PRN (14:27)
[2017-11-03] MEDS ORDERED: SODIUM CHLORIDE FLUSH SYRINGE 10 ML IV NR (15:00)
--- NOTE | 2017-11-03 16:14 | Procedure Note ---
OB Delivery Note - Delivery Date of Delivery: 11/03/17 Incident Coordinator: LEYLA MADISON Estimated blood loss: 300cc - Vaginal Delivery presentation: vertex Delivery position: OA Intrapartum events: preeclampsia, precipitous labor- <3hr Delivery induction: oxytocin Delivery augmentation: rupture of membranes Delivery monitor: external FHT, external uterine Route of delivery: Delivery placenta: spontaneous Delivery cord: 3 umbilical vessels Episiotomy: none Delivery laceration: none Anesthesia: none Delivery comments: Pt made rapid progress from 6 to complete. SROM and baby followed. Called by staff readiness officer that baby had delivered. live born female over intact perineum. Cord blood obtained Placenta and membrane del complete and intact, 3 vessel cord. NICU evaled baby and cleared her to go to nursery. 8/9, EBL 300, Wgt 4-4. Pit IVFs. Consulted with . Will start MGSO4 per protocol. Mom and baby remain LDR stable. - A at 1 minute: 8 at 5 minutes: 9 Infant Gender: Female (wgt 4-4)
[2017-11-03] MEDS: MAGNESIUM SULFATE 40GM/1000ML 40 GM/1,000 ML BAG IV SCH (17:34)
[2017-11-03] MEDS: MOTRIN PO SCH (20:20)
[2017-11-04 02:36] LABS: Hematocrit 30.8 % (30.3-42.9); Hemoglobin 10.4 gm/dl (10.1-14.3)
[2017-11-04] MEDS: MOTRIN PO SCH ×4 (03:30→20:22)
--- NOTE | 2017-11-04 08:28 | Progress Note ---
Assessment and Plan patient doing well, no complaints this morning. reports some blurry vision she thinks is from lack of sleep. infant with good latch. magnesium sulfate to continue x 24h post delivery. Last mag level 4.2, good output via esparza cath. H&H 10.4/30.8. b/p's 130-140's/70-90's. pt denies FIGUEROA or epigastric pain. Continue current management. All questions addressed. - Patient Problems (1) Pre-eclampsia Current Visit: Yes Status: Acute Qualifiers: Trimester: third trimester Qualified Code(s): O14.93 - Unspecified pre- eclampsia, third trimester (2) Spontaneous vaginal delivery Current Visit: Yes Status: Acute Subjective - Subjective Date of service: 11/04/17 Principal diagnosis: day W#1 s/p , pre-e Patient reports: appetite normal, pain well controlled, ambulating normally, no dizzy ambulation, no nauseated : doing well, nursing well Objective - Vital Signs Latest vital signs: Vital Signs Temp Pulse Resp BP BP Pulse Ox 11/04/17 06:03 98.0 F 74 20 146/83 11/04/17 04:00 98.2 F 86 20 143/90 11/04/17 02:05 98.9 F 76 20 146/78 11/04/17 00:00 98.2 F 72 20 142/87 11/03/17 22:05 98.0 F 76 20 134/77 11/03/17 20:25 98.8 F 82 18 142/85 98 11/03/17 18:00 98.8 F 73 20 140/81 98 11/03/17 16:52 74 144/78 11/03/17 16:37 68 145/78 11/03/17 16:22 71 146/88 11/03/17 16:07 81 157/89 11/03/17 15:52 84 148/88 11/03/17 15:47 80 138/87 11/03/17 13:07 76 150/88 11/03/17 12:38 62 171/93 11/03/17 10:33 70 153/86 11/03/17 09:15 93 H 156/93 11/03/17 09:00 99 H 150/87 11/03/17 08:50 89 152/87 11/03/17 08:31 92 H 136/87 Intake and Output 11/03/17 11/04/17 11/04/17 23:59 07:59 15:59 Intake Total 240 480 Output Total 800 1900 Balance -560 -1420 Intake: Oral 240 480 Output: Urine 800 1900 Indwelling Catheter 800 1900 Other: Total, Intake Amount 240 240 Total, Output Amount 800 1100 - Exam Breasts: Present: normal Cardiovascular: Present: Regular rate Lungs: Present: Clear to auscultation, Normal air movement Abdomen: Present: normal appearance, soft Vulva: both: normal Uterus: Present: normal, firm, fundal height at umbilicus Extremities: Present: normal Deep Tendon Reflex Grade: Normal +2 - Labs Labs: Abnormal lab results 11/03/17 11/03/17 11/03/17 Range/Units 09:50 09:50 19:50 WBC 11.4 H (4.5-11.0) K/mm3 Creatinine 0.5 L (0.7-1.2) mg/dL Magnesium 3.30 H (1.7-2.3) mg/dL AST 49 H (5-40) units/L ALT 59 H (7-56) units/L Lactate Dehydrogenase 245 H (91-180) units/L 11/03/17 11/04/17 11/04/17 Range/Units 22:22 01:52 05:37 WBC (4.5-11.0) K/mm3 Creatinine (0.7-1.2) mg/dL Magnesium 3.70 H 4.00 H 4.20 H (1.7-2.3) mg/dL AST (5-40) units/L ALT (7-56) units/L Lactate Dehydrogenase (91-180) units/L
[2017-11-04] MEDS: MAGNESIUM SULFATE 40GM/1000ML 40 GM/1,000 ML BAG IV SCH (10:58)
[2017-11-04] MEDS ORDERED: LACTATED RINGERS 1,000 ML IV SCH (11:00)
[2017-11-04] MEDS ORDERED: BOOSTRIX IM ONE (14:07)
[2017-11-05] MEDS: MOTRIN PO SCH ×2 (07:20→13:00)
--- NOTE | 2017-11-05 10:22 | Discharge Summary ---
Providers - Providers Date of Admission: 11/03/17 12:03 Attending physician: DULCE PHILLIPS Primary care physician: CLEMENTE MATHIAS Hospitalization Reason for admission: active labor Delivery: Episiotomy: none Laceration: none Other procedures: none complications: none Discharge diagnosis: delivery baby: female Hospital course: Patient was admitted underwent a normal spontaneous vaginal delivery. Her course was benign. She was afebrile throughout her stay. Her day 1 hematocrit was 30%. is being observed in the NICU for temperature instability. If possible discharge today also. Patient is breast- feeding and plans to use partner vasectomy for control. Condition at discharge: Good Disposition: DC-01 TO HOME OR SELFCARE Plan - Discharge Medications Prescriptions: Ferrous Sulfate [Feosol 325 MG tab] 325 mg PO BID #60 tablet Ibuprofen [Motrin 800 MG tab] 800 mg PO Q6H PRN #30 tablet PRN Reason: Pain - Provider Discharge Summary Activity: no sex for 6 weeks, no heavy lifting 4 weeks, no strenuous exercise Diet: routine Instructions: routine Additional instructions: [] Smoking cessation referral if applicable(refer to patient education folder for contact #) [] Refer to [facility]'s [facility] Booklet Call your doctor immediately for: * Fever > 100.5 * Heavy vaginal bleeding ( >1 pad per hour) * Severe persistent headache * Shortness of breath * Reddened, hot, painful area to leg or breast * Drainage or odor from incision. * Keep incision clean and dry at all times and follow doctor's instructions regarding bathing/showering - Follow up plan Follow up: CLEMENTE MATHIAS MD [Primary Care Provider] - 7 Days
[2017-11-05 13:38] VITALS: BP 146/94
[2017-11-05] MEDS ORDERED: DEPO-PROVERA (CONTRACEPTION) IM NR (16:35)
== END 2017-11-05 17:30 | disposition home or self-care (01) | DRG 775 ==
LOC: TRG 07:34 → LD 10:25 → TRG 12:02 → LD 12:03 → OB 18:24
PROVIDERS: ADMIT Obstetrics & Gynecology; ATTEND Obstetrics & Gynecology
PROC: 10E0XZZ Delivery of Products of Conception, External Approach (ICD-10-PCS; principal; 2017-11-03)
PROC: 3E033VJ Introduction of Other Hormone into Peripheral Vein, Percutaneous Approach (ICD-10-PCS; 2017-11-03)
DX: O14.94 Unspecified pre-eclampsia, complicating childbirth (principal); O62.3 Precipitate labor; O60.14X0 Preterm labor third trimester with preterm delivery third trimester, not applicable or unspecified; Z3A.35 35 weeks gestation of pregnancy; Z37.0 Single live birth
CPT/HCPCS: 36415; 81001; 82565; 83615; 83735; 84450; 84460; 84550; 85014; 85018; 85027; 86592; 86850; 86900; 86901; 88307; 99211; G0463; J0290; J2590; J3010; J3475; J7120